=== PATIENT | male | born 1995 | race Caucasian/White ===

== ENCOUNTER 2025-07-07 16:27 | Emergency (ER) | payer SELFPAY ==
[2025-07-07 16:26] VITALS: PULSE 142; RESP 23
--- NOTE | 2025-07-07 16:35 | ECG_ITS ---
Test Date: 2025-07-07 16:35:46 Measurements Intervals [place] Rate: 140 P: 58 HI: 154 QRS: 50 QRSD: 110 T: 50 QT: 364 QTc: 557 Interpretive Statements SINUS TACHYCARDIA, POSSIBLE ATRIAL FLUTTER POSSIBLE RIGHT VENTRICULAR CONDUCTION DELAY [RSR (QR) IN V1/V2] ABNORMAL ECG No previous ECG available for comparison Electronically Signed On 07-08-2025 07:22:48 CDT by Pete Jones M.D.
--- NOTE | 2025-07-07 17:05 | ECG_ITS ---
Test Date: 2025-07-07 17:22:15 Measurements Intervals [place] Rate: 130 P: 0 VA: 0 QRS: 38 QRSD: 114 T: 45 QT: 400 QTc: 589 Interpretive Statements ATRIAL FLUTTER/TACHYCARDIA WITH RAPID VENTRICULAR RESPONSE INCOMPLETE RIGHT BUNDLE BRANCH BLOCK [90+ ms QRS DURATION, TERMINAL R IN V1/V2, 40+ ms S IN I/aVL/V4/V5/V6] ABNORMAL RHYTHM ECG No previous ECG available for comparison Electronically Signed On 07-08-2025 07:23:15 CDT by Pete Jones M.D.
--- NOTE | 2025-07-07 17:10 | ED.OVERDOSE ---
HPI - Overdose General Chief Complaint: Overdose Stated Complaint: overdose Time Seen by Provider: 07/07/25 17:03 Source: patient Mode of arrival: EMS Limitations: no limitations History of Present Illness HPI Narrative: This is a 30-year-old male that presents to the emergency department for an overdose. Reports he took 400mg of Benadryl and 200mg of Doxylamine. Reports he doubled the dose he usually takes to sleep as he was having trouble sleeping. Reports this was not an attempt to harm/kill himself. Reports anxiety, sweating, feeling off balance. This happened about 45 minutes prior to arrival. Related Data Allergies Allergy/AdvReac Type Severity Reaction Status Date / Time No Known Allergies Allergy Verified 07/07/25 17:20 Review of Systems Review of Systems: All systems reviewed & are unremarkable except as noted in HPI and below PMFSH Past Medical History Medical History (Updated 07/07/25 @ 23:03 by Hilda Ballard PA-C) Insomnia ADHD Social History Social History Substance use type: marijuana Exam Narrative: GENERAL: Diaphoretic, well-nourished, and in no acute distress. HEAD: Normocephalic, atraumatic. EYES: PERRLA and EOMI. ENT: Nares clear, no rhinorrhea or epistaxis. Mucous membranes moist. Oropharynx without tonsillar hypertrophy exudate or other lesions. Bilateral TMs pearly torre non-bulging NECK: Supple. No adenopathy or masses. CHEST: Clear to auscultation. No respiratory distress. No wheezes rales or rhonchi HEART: Tachycardic, regular rhythm. No murmur heard. Normal peripheral pulses. EXTREMITIES: Normal range of motion. No edema. SKIN: Warm, dry, no rash. NEURO: No focal deficits. Alert and oriented x3. PSYCH: Normal mood and affect Course Course Emergency Course: Poison control was contacted. Peak in about 3 hours, could be longer with combined overdose. Symptomatic management Consultations Consultation #1: Patient evaluated by crisis. Given resources, they will follow up with him Date: 07/07/25 Vital Signs Vital signs: Vital Signs Pulse Rate 142 H 07/07/25 16:26 Respiratory Rate 23 H 07/07/25 16:26 Pulse Rate 119 H 07/07/25 20:45 Respiratory Rate 19 07/07/25 20:45 Blood Pressure 160/98 H 07/07/25 20:45 Pulse Oximetry 100 07/07/25 20:45 MDM - Overdose MDM Narrative Medical decision making narrative: Patient presents to the ER after taking two different antihistamines in order to fall asleep. Patient reports history of insomnia and regularly has to take antihistamines to go to sleep. Reports he doubled his dose tonight. Does not report this was an attempt to harm himself or kill himself. Tachycardic upon arrival. This improved with IV fluid hydration. Patient's airway is patent. He is neurologically intact. CBC with mild leukocytosis. Metabolic panel with mild hypokalemia, this was replaced. Urine with white blood cells, also squamous epithelial cells. Patient does not have any urinary symptoms. Will send this for culture. Drug screen positive for cannabinoids. Alcohol level is not elevated. Patient was hydrated given a dose of Ativan with improvement. Monitored in the ER for 6 hours. Patient evaluated by crisis. Given resources, they will follow up with him. He was given warnings to return to the ER Differential Diagnosis Differential diagnosis: Likely suicide attempt by multiple drug overdose, drug overdose and accidental drug ingestion Lab Data Attestation: I reviewed the patient's lab results. 07/07/25 17:11 07/07/25 17:11 Labs: Lab Results 07/07/25 07/07/25 07/07/25 Range/Units 17:11 17:20 17:35 WBC 11.1 H (4.5-10.0) K/mm3 RBC 5.61 (4.6-6.20) M/mm3 Hgb 17.5 (14.0-18.0) g/dL Hct 49.9 (42.0-52.0) % MCV 88.9 (80-100) fl MCH 31.2 (26-34) pg MCHC 35.1 (32-36) g/dl RDW 13.2 (11.5-14.5) % Plt Count 416 H (150-375) k/mm3 MPV 9.8 (7.4-10.4) fl Immature Gran % (Auto) 0.4 (0-0.5) % Neut % (Auto) 69.4 (45.5-73.1) % Lymph % (Auto) 22.1 (18.3-44.2) % [place] % (Auto) 6.6 (2.6-8.5) % Eos % (Auto) 0.7 (0-4.4) % Baso % (Auto) 0.8 (0.2-1.2) % Lymph # (Auto) 2.46 (0.9-3.2) K/mm3 [place] # (Auto) 0.7 H (0.1-0.6) K/mm3 Eos # (Auto) 0.1 (0-0.3) K/mm3 Baso # (Auto) 0.1 (0.0-0.1) K/mm3 Abs Immat Gran (auto) 0.05 H (0.00-0.031) K/mm3 Absolute Neuts (auto) 7.7 H (1.3-6.7) K/mm3 Absolute Nucleated RBC 0.000 (0.0-0.012) K/mm3 Nucleated RBC % 0.0 (0.0-0.2) % Sodium 138 (137-145) mmol/L Potassium 3.2 L (3.4-5.0) mmol/L Chloride 99 (98-107) mmol/L Carbon Dioxide 14 L (22-30) mmol/L Anion Gap 25 H (4-12) mmol/L BUN 12 (9-20) mg/dL Creatinine 1.11 (0.7-1.3) mg/dL Estim Creat Clear Calc 134 ml/min Estimated GFR > 60 (59 - ) Glucose 132 H (65-110) mg/dL POC Capillary Glucose (65-105) mg/dl Calcium 9.9 (8.4-10.2) mg/dL Magnesium 2.1 (1.6-2.3) mg/dL Total Bilirubin 1.4 H (0.2-1.3) mg/dL AST 48 (17-59) U/L ALT 68 H (6-50) U/L Alkaline Phosphatase 112 (38-126) U/L Total Creatine Kinase 62 (55-170) U/L Total Protein 8.9 H (6.3-8.2) g/dL Albumin 5.3 H (3.5-5.1) g/dL TSH 0.812 (0.465-4.680) uIU/mL Urine Color Dark yellow (Yellow) Urine Appearance Turbid H (Clear) Urine pH 6.0 (5.0-9.0) Ur Specific [place] 1.037 H (1.001-1.035) Urine Protein 2+ H (Negative) mg/dL Urine Glucose (UA) Negative (Negative) mg/dL Urine Ketones 3+ H (Negative) mg/dL Ur Blood (Man) Negative (Negative) Urine Nitrate Negative (Negative) Urine Bilirubin 2+ H (Negative) Urine Urobilinogen 1.0 (<2.0) mg/dL Add Ur Microanalysis Reviewed Leukocyte Esterase Rfl 2+ H (Negative) ALICIA/UL Urine RBC 0-2 (0-2) /hpf Urine WBC 51-100 H (0-3) /hpf Ur Squamous Epith Cells Few (Few) /hpf Urine Bacteria Rare /hpf Urine Casts >20 Hyaline Casts Present (None) /lpf Urine Mucus Present /lpf Urine Yeast (Budding) Present H (None) /hpf Salicylates < 1.0 L (2-20) mg/dL Urine Opiates Screen Negative (Negative) Urine Methadone Screen Negative (Negative) Acetaminophen < 10 L (10-30) ug/mL Ur Barbiturates Screen Negative (Negative) Ur Phencyclidine Scrn Negative (Negative) Ur Amphetamine Screen Negative (Negative) U Benzodiazepines Scrn Negative (Negative) Urine Cocaine Screen Negative (Negative) U Cannabinoids Screen Positive A (Negative) Ethyl Alcohol < 10 (<10) mg/dL C. trachomatis (PCR) Not detected (NOT DETECTE) Influenza A (RT-PCR) Negative (Negative) Influenza B (RT-PCR) Negative (Negative) N. gonorrhoeae (PCR) Not detected (NOT DETECTE) SARS-CoV-2 RNA (RT-PCR) Negative (Negative) T. vaginalis (PCR) Not detected (NOT DETECTE) 07/07/25 Range/Units 18:17 WBC (4.5-10.0) K/mm3 RBC (4.6-6.20) M/mm3 Hgb (14.0-18.0) g/dL Hct (42.0-52.0) % MCV (80-100) fl MCH (26-34) pg MCHC (32-36) g/dl RDW (11.5-14.5) % Plt Count (150-375) k/mm3 MPV (7.4-10.4) fl Immature Gran % (Auto) (0-0.5) % Neut % (Auto) (45.5-73.1) % Lymph % (Auto) (18.3-44.2) % [place] % (Auto) (2.6-8.5) % Eos % (Auto) (0-4.4) % Baso % (Auto) (0.2-1.2) % Lymph # (Auto) (0.9-3.2) K/mm3 [place] # (Auto) (0.1-0.6) K/mm3 Eos # (Auto) (0-0.3) K/mm3 Baso # (Auto) (0.0-0.1) K/mm3 Abs Immat Gran (auto) (0.00-0.031) K/mm3 Absolute Neuts (auto) (1.3-6.7) K/mm3 Absolute Nucleated RBC (0.0-0.012) K/mm3 Nucleated RBC % (0.0-0.2) % Sodium (137-145) mmol/L Potassium (3.4-5.0) mmol/L Chloride (98-107) mmol/L Carbon Dioxide (22-30) mmol/L Anion Gap (4-12) mmol/L BUN (9-20) mg/dL Creatinine (0.7-1.3) mg/dL Estim Creat Clear Calc ml/min Estimated GFR (59 - ) Glucose (65-110) mg/dL POC Capillary Glucose 71 (65-105) mg/dl Calcium (8.4-10.2) mg/dL Magnesium (1.6-2.3) mg/dL Total Bilirubin (0.2-1.3) mg/dL AST (17-59) U/L ALT (6-50) U/L Alkaline Phosphatase (38-126) U/L Total Creatine Kinase (55-170) U/L Total Protein (6.3-8.2) g/dL Albumin (3.5-5.1) g/dL TSH (0.465-4.680) uIU/mL Urine Color (Yellow) Urine Appearance (Clear) Urine pH (5.0-9.0) Ur Specific [place] (1.001-1.035) Urine Protein (Negative) mg/dL Urine Glucose (UA) (Negative) mg/dL Urine Ketones (Negative) mg/dL Ur Blood (Man) (Negative) Urine Nitrate (Negative) Urine Bilirubin (Negative) Urine Urobilinogen (<2.0) mg/dL Add Ur Microanalysis Leukocyte Esterase Rfl (Negative) ALICIA/UL Urine RBC (0-2) /hpf Urine WBC (0-3) /hpf Ur Squamous Epith Cells (Few) /hpf Urine Bacteria /hpf Urine Casts Hyaline Casts (None) /lpf Urine Mucus /lpf Urine Yeast (Budding) (None) /hpf Salicylates (2-20) mg/dL Urine Opiates Screen (Negative) Urine Methadone Screen (Negative) Acetaminophen (10-30) ug/mL Ur Barbiturates Screen (Negative) Ur Phencyclidine Scrn (Negative) Ur Amphetamine Screen (Negative) U Benzodiazepines Scrn (Negative) Urine Cocaine Screen (Negative) U Cannabinoids Screen (Negative) Ethyl Alcohol (<10) mg/dL C. trachomatis (PCR) (NOT DETECTE) Influenza A (RT-PCR) (Negative) Influenza B (RT-PCR) (Negative) N. gonorrhoeae (PCR) (NOT DETECTE) SARS-CoV-2 RNA (RT-PCR) (Negative) T. vaginalis (PCR) (NOT DETECTE) Critical Care Time Critical Care Time Critical Care Time: No Discharge Plan Discharge Clinical Impression: Abnormal urinalysis Anticholinergic drug overdose Qualifiers: Encounter type: initial encounter Injury intent: accidental or unintentional Qualified Code(s): T44.3X1A - Poisoning by other parasympatholytics [anticholinergics and antimuscarinics] and spasmolytics, accidental (unintentional), initial encounter Patient Disposition: Home Condition: Improved Instructions: Adult Overdose (ED) Additional Instructions: Return to the emergency department if you experience fever, chest pain, shortness of breath, abdominal pain with nausea and vomiting, weakness, numbness, or any other symptoms that are concerning to you. Follow up with primary care doctor and resources provided by crisis Patient Language: Australian Follow-up/Referrals: Duglas Carrera MD [Physician, Family Practice] UNKNOWN,DOCTOR [Primary Care Provider]
[2025-07-07 17:22] LABS: Hematocrit 49.9 % (42.0-52.0); Hemoglobin 17.5 g/dL (14.0-18.0); Immature Granulocyte Percent A 0.4 % (0-0.5); Lymphocytes Absolute Auto 2.46 K/mm3 (0.9-3.2); Mean Corpuscular HGB Conc 35.1 g/dl (32-36); Mean Corpuscular Hemoglobin 31.2 pg (26-34); Mean Corpuscular Volume 88.9 fl (80-100); Nucleated Red Blood Cells Absolute Auto 0.000 K/mm3 (0.0-0.012); Nucleated Red Blood Cells Perc 0.0 % (0.0-0.2); Platelet Count Result 416 k/mm3 (150-375); Red Blood Count 5.61 M/mm3 (4.6-6.20); White Blood Count 11.1 K/mm3 (4.5-10.0)
[2025-07-07] MEDS: SODIUM CHLORIDE 0.9% IV 1,000 ML 999 ML IV CONT (17:24)
--- NOTE | 2025-07-07 17:24 | PC.NURSE ---
Spoke with Tiff, pharmacist at poison control. States peka for doxylamine is 1-2 hours and diphenhydramine is 2-3 hours. These can be delayed in overdose. Recommended labs are ethanol, tylenol, UDS and salicylates. Recommends symptomatic care at this time. Pt can develop drowsiness, N/V and agitation as sx.
[2025-07-07 17:37] LABS: Acetaminophen < 10 ug/mL (10-30); Salicylate < 1.0 mg/dL (2-20)
[2025-07-07 17:38] LABS: Alanine Aminotransferase 68 U/L (6-50); Albumin Level 5.3 g/dL (3.5-5.1); Alkaline Phosphatase 112 U/L (38-126); Anion Gap 25 mmol/L (4-12); Aspartate Amino Transferase 48 U/L (17-59); Bilirubin,Total 1.4 mg/dL (0.2-1.3); Blood Urea Nitrogen 12 mg/dL (9-20); Calcium 9.9 mg/dL (8.4-10.2); Carbon Dioxide 14 mmol/L (22-30); Chloride 99 mmol/L (98-107); Creatine Kinase 62 U/L (55-170); Estimated CRCL calculation 134 ml/min; Estimated Glomerular Filt Rate > 60; Glucose 132 mg/dL (65-110); Potassium 3.2 mmol/L (3.4-5.0); Sodium 138 mmol/L (137-145); Total Protein 8.9 g/dL (6.3-8.2)
[2025-07-07 17:55] LABS: Add Urine Microscopic? YES; Appearance Urine Turbid (Clear); Budding Yeast Urine Present /hpf; Glucose Urine UA Negative (Negative); Leukocyte Esterase Ur 2+ LEU/UL (Negative); Need Manual Microscopic Reviewed; Nitrate Urine Negative (Negative); Non Pathogenic Casts >20; Specific Grav Ur 1.037 (1.001-1.035)
--- OUTSIDE RECORDS SUMMARY | 2025-07-07 17:56 | XMS_ITS | Patient Health Record ---
Author Organization [facility] Address [address] [place], [place] [id number] Support Name Relationship Address Phone JESSICA TALAVERA Guarantor Unknown [phone] Reason For Referral No Information Plan Of Treatment No Information
--- OUTSIDE RECORDS SUMMARY | 2025-07-07 17:56 | XMS_ITS | Clinical Summary ---
Author Organization [facility] Address [address] [place] [address] Care Team Providers Care Orthopaedic Physician Assistant Name Role Phone Unavailable Primary Care Provider Unavailabl e Source Comments PLEASE NOTE, if this patient is a minor, it may be UNLAWFUL to discuss sensitive information that is contained in these records (such as FAMILY PLANNING, MENTAL HEALTH or SUBSTANCE ABUSE) with the minor patient's parent or other person without the patient's specific authorization.[facility] Allergies No known active allergies Medications lisinopriL-hydr ochlorothiazide 20-25 mg per tablet Take 1 Tablet by mouth once daily 30 Tablet 3 03/02/2022 2:48 PM PDT 11/22/2021 Active buPROPion HCL (WELLBUTRIN XL) 150 mg 24 hr tablet Take 1 Tablet by mouth every morning 30 Tablet 3 03/02/2022 2:48 PM PDT 11/22/2021 Active emtricitabine-t enofovir, TDF, (TRUVADA) 200-300 mg per tablet TAKE ONE TABLET BY MOUTH ONCE DAILY 30 Tablet 3 03/07/2022 1:11 PM PDT 03/02/2022 Active dextroamphetami ne-amphetamine (ADDERALL XR) 30 mg 24 hr capsule TAKE ONE CAPSULE BY MOUTH EVERY MORNING 30 Capsule 03/07/2022 1:11 PM PDT 03/02/2022 Active Active Problems Problem Noted Date Diagnosed Date Essential hypertension 05/12/2019 ADD (attention deficit disorder) without hyperac tivity 01/28/2019 Exposure to human immunodeficiency virus 019 Chronic prostatitis 01/28/2019 Other obesity due to excess calories 01/28/2019 Depression 01/28/2019 Nephrolithiasis 01/28/2019 Immunizations Immunization Administration Dates Next Due HEP B,ADULT 04/11/2018,03/05/2018 Family History Medical History Relation Name Comments ADD / ADHD Father Depression Father Depression Mother Heart Problems Mother Relation Name Status Comments Father Alive Mother Alive Social History Tobacco Use Types Packs/Day Years Used Date Smoking Tobacco: Never Smokeless Tobacco: Never Tobacco Cessation:Counseling Given: Yes Social Connections Answer Date Recorded Connectedness 0 07/04/2024 Financial Resource Strain Answer Date R ecorded Financial Resource Strain 0 2018 Stress Answer Date Recorded Stress 0 06/09/2019 Physical Activity Answer Date Recorded Physical Activity 0 06/09/2019 Food Insecurity Answer Date Recorded Food 0 07/10/2024 Transportation Needs Answer Date Record ed Transportation 0 06/09/2019 Housing Stability Answer Date Recorded Housing 0 06/09/2019 Safety and Environment Answer Date Azeem rded Safety 0 06/09/2019 Utilities Answer Date Recorded Utilities 0 06/09/2019 Employment Answer Date Recorded Stress 0 07/04/2024 Sex and Gender Information Value Date Recorded Sex Assigned at Not on file Legal Sex Male 10:54 AM PST Gender Identity Not on file Sexual Orientation Not on file Last Filed Vital Signs Vital Sign Reading Time Taken Comments Blood Pressure 155/97 11/22/2021 12:40 PM [facility] Pulse 92 11/22/2021 12:40 PM [facility] Temperature 36.8 C (98.2 F) 11/22/2021 12:40 PM [facility] Respiratory Rate 18 06/16/2020 3:17 PM CDT Oxygen Saturation 96% 11/22/2021 12: 40 PM [facility] Inhaled Oxygen Concentration - - Weight 138.4 kg (305 lb 3.2 oz) 022 12:40 PM [facility] Height 190.5 cm (6' 3) 09/21/2021 9:28 AM [facility] Body Mass Index 38.15 09/21/2021 9:28 AM [facility] Plan of Treatment Health Maintenance Due Date Last Done Comments Anxiety Screening 1995 Tobacco Screening 1995 Imm-DTaP/Tdap/Td (1 - Tdap) 2014 Imm-Hepatitis B (3 of 3 - 19 + 3-dose series) 09/05/2018 04/11/2018, 03/05/2018 Depression Monitoring 08/12/2019 05/12/2019 Imm-HPV (1 - 3-dose SCDM series) 2022 Annual Wellness (Adult): Indicated (All Coverage) 02/15/2022 02/15/2021, 11/14/2019 Lipid Screening 02/16/2024 02/15/2021, 10/17, 10/25/2018, Additional history exists Alcohol and Drug Screen 10/15/2024 [id number] ( season) 2025 Imm-Influenza (#1) 2025 HIV Screening Completed 03/09/2022, 05/2022, 07/19/2021, Additional history exists Hepatitis C Screening Completed 03/09/2022 , 11/22/2021, 02/15/2021, Additional history exists Procedures Procedure Name Priority Date/Time Associated Diagnosis Comments HIV 1/2 AG & AB W/RFLX (4TH GEN) Routine 11/22/2021 1:11 PM [facility] Exposure to human immunodeficiency virus HEPATITIS C AB W/RFLX HCV RNA, QT, RT PCR Routine 11/22/2021 1:11 PM [facility] Exposure to human immunodeficiency virus LIPID PANEL Routine 02/15/2021 4:13 PM CDT Routine adult health maintenance from Last 3 Months or Most Recently Relevant to Health Maintenance Results * HEPATITIS C AB W/RFLX HCV RNA, QT, RT PCR (11/22/2021 1:11 PM [facility]) HEPATITIS C ANTIBODY NON-REACT CATHY NON-REACT CATHY [facility] SIGNAL TO CUT-OFF 0.01 <1.00 [facility] Comment: HCV antibody was non-reactive. There is no laboratory evidence of HCV infection. In most cases, no further action is required. However, if recent HCV exposure is suspected, a test for HCV RNA (test code 55525) is suggested. For additional information please refer to http://education.WAKU WAKU ?/faq/PXW93c1 (This link is being provided for informational/ educational purposes only.) Blood Blood / Unknown 11/22/2021 1 :11 PM [facility] 11/22/2021 1:11 PM [facility] Narrative [facility] - 11/23/2021 10:44 PM [facility] FASTING:NO Rex Mac MD LAB - BLOOD DRAW Edited Re sult - Final [facility] [address] [id number], [facility] [place] [address] [place] [address] * HIV 1/2 AG & AB W/RFLX (4TH GEN) (11/22/2021 1:11 PM [facility]) Pathologist [facility] HIV AG/AB, 4TH GEN NON-REACT CATHY NON-REACT CATHY [facility] Comment: HIV-1 antigen and HIV-1/HIV-2 antibodies were not detected. There is no laboratory evidence of HIV infection. PLEASE NOTE: This information has been disclosed to you from records whose confidentiality may be protected by state law. If your state requires such protection, then the state law prohibits you from making any further disclosure of the information without the specific written consent of the person to whom it pertains, or as otherwise permitted by law. A general authorization for the release of medical or other information is NOT sufficient for this purpose. For additional information please refer to http://education.Eduora.InflaRx/faq/YZB639 (This link is being provided for informational/ educational purposes only.) The performance of this assay has not been clinically validated in patients less than 2 years old. Blood Blood / Unknown 11/22/2021 1 :11 PM [facility] 11/22/2021 1:11 PM [facility] Narrative [facility] - 11/23/2021 10:44 PM [facility] FASTING:NO Rex Mac MD LAB - BLOOD DRAW Final Res ult [facility] [address] [address], [facility] [place] [address] [place] [address] * LIPID PANEL (02/15/2021 4:13 PM CDT) CHOLESTEROL, TOTAL 171 <200 mg/dL [facility] HDL CHOLESTEROL 64 > OR = 40 mg/dL [facility] TRIGLYCERIDES 62 <150 mg/dL [facility] LDL-CHOLESTEROL 93 99 mg/dL (calc) [facility] Comment: Reference range: <100 Desirable range <100 mg/dL for primary prevention; <70 mg/dL for patients with CHD or diabetic patients with > or = 2 CHD risk factors. LDL-C is now calculated using the Azra calculation, which is a validated novel method providing better accuracy than the Friedewald equation in the estimation of LDL-C. Jose Juan SS et al. ADAM. 2013;310(19): 1449-8997 (http://education.Repair Report/faq/NSL492) CHOL/HDLC RATIO 2.7 <5.0 (calc) [facility] NON-HDL CHOLESTEROL 107 <130 mg/dL (calc) [facility] Comment: For patients with diabetes plus 1 major ASCVD risk factor, treating to a non-HDL-C goal of <100 mg/dL (LDL-C of <70 mg/dL) is considered a therapeutic option. Blood Blood / Unknown 02/15/2021 4 :13 PM CDT 02/15/2021 4:15 PM CDT Rex Mac MD LAB - BLOOD DRAW Final Res ult [facility] [place] [address] [facility] [place] [address], [facility] [address] [facility] [place] [address] from Last 3 Months or Most Recently Relevant to Health Maintenance Insurance [facility]
--- OUTSIDE RECORDS SUMMARY | 2025-07-07 17:56 | XMS_ITS | Clinical Summary ---
Author Organization [facility] Address [address] [place] [address] Care Team Providers Care Braddisher Name Role Phone Louisa Schumacher NP Primary Care Provider [phone] Allergies No known active allergies Medications multivit aomdoaki-qtwz-YU-c alcium (THERA-M) 9 mg iron-400 mcg tabletIndications: Vitamin Deficiency Prevention Take 1 tablet by mouth daily 30 tablet 2 Active lisinopriL (PRINIVIL,ZESTRIL) 20 mg tabletIndications: Hypertension, essential,Annual physical exam Take 1 tablet (20 mg total) by mouth daily 90 tablet 1 4 Active cholecalciferol, vitamin D3, 5,000 unit/mL drops Take 1 mL by mouth daily Active buPROPion XL (Wellbutrin XL) 300 mg 24 hr tabletIndications: Attention deficit hyperactivity disorder (ADHD), unspecified ADHD type,Moderate episode of recurrent major depressive disorder (HCC) Take 1 tablet (300 mg total) by mouth every morning 30 tablet 1 5 Active dextroamphetamine- amphetamine XR (Adderall XR) 10 mg 24 hr capsuleIndications :Attention deficit hyperactivity disorder (ADHD), unspecified ADHD type Take 1 capsule (10 mg total) by mouth every morning 30 capsule 5 Active dextroamphetamine- amphetamine XR (ADDERALL XR) 25 mg 24 hr capsuleIndications :Attention deficit hyperactivity disorder (ADHD), unspecified ADHD type Take 1 capsule (25 mg total) by mouth daily 30 capsule 5 Active Active Problems Problem Noted Date Diagnosed Date Flank pain 08/27/2024 Assessment & Plan (08/27/2024 6:16 AM LSAT INSTRUCTOR): Chronic, episodic Unremarkable POCT urine test, sent for culture for confirmation Discussed additional imaging with CT of abdomen pelvis, not interested at this time Tylenol and warm compresses recommended Strict return precautions given, including when to seek ER evaluation Elevated ALT measurement 07/28/2024 Assessment & Plan (07/28/2024 4:22 PM CDT): New diagnosis, stability unknown Will monitor for stability Vitamin D deficiency 07/28/2024 Assessment & Plan (07/28/2024 4:25 PM CDT): Chronicity and stability unknown, normal at last check Continued on vitamin D3 supplement Will monitor for stability APRIL (generalized anxiety disorder) 07/28/2024 Assessment & Plan (08/27/2024 6:15 AM LSAT INSTRUCTOR): Chronic, stability and degree of control unknown, on medication with recent adjustment/addition, seeing psychiatry Encouraged to follow up with psychiatry as recommended Assessment & Plan (07/28/2024 4:38 PM CDT): Chronic, uncontrolled, stability unknown, on medication and seeing psychiatry Reviewed APRIL-7 score Encouraged to follow up with psychiatry as recommended Screening examination for sexually transmitted d isease 02/21/2023 Assessment & Plan (02/21/2023 7:10 AM CDT): Ordered STD panel. Morbid obesity with BMI of 45.0-49.9, adult 02/12 Assessment & Plan (08/27/2024 6:13 AM LSAT INSTRUCTOR): Chronic, worsened Encouraged to: Make healthy food choices, limiting intake of concentrated sweets, cholesterol, and saturated fat Monitor daily caloric intake and portion sizes Exercise most days of the week for a goal of at least 150 minutes of exercise per week Assessment & Plan (07/28/2024 4:14 PM CDT): Chronic, worsened Encouraged to: Make healthy food choices, limiting intake of concentrated sweets, cholesterol, and saturated fat Monitor daily caloric intake and portion sizes Exercise most days of the week for a goal of at least 150 minutes of exercise per week Assessment & Plan (01/22/2024 2:35 PM CDT): Chronic, improved Encouraged to: Make healthy food choices, limiting intake of concentrated sweets, cholesterol, and saturated fat Monitor daily caloric intake and portion sizes Exercise most days of the week for a goal of at least 150 minutes of exercise per week Assessment & Plan (07/25/2023 4:58 AM CDT): Chronic, worsening, without serious co-morbidity Encouraged to monitor daily caloric intake and portion sizes and to exercise most days of the week, for a goal of at least 150 minutes of exercise per week Assessment & Plan (02/21/2023 7:12 AM CDT): Chronic, worsening, without serious comorbidity-encouraged to monitor daily caloric intake and portion sizes and to exercise most days of the week, for goal of at least 150 minutes per week. History of colon polyps 06/26/2022 Assessment & Plan (07/25/2023 4:58 AM CDT): Encouraged follow-up with [facility] as recommended Assessment & Plan (06/26/2022 7:37 PM CDT): Encouraged to keep appointment this month for screening colonoscopy. Annual physical exam 03/31/2022 Assessment & Plan (07/28/2024 4:24 PM CDT): Reviewed past and current medical history, surgical history, social history, family history, current medications, and allergies. The chart was updated to identify any changes in these areas. A ROS and PE were performed. Discussed screening colonoscopy and recommended immunizations. Patient will follow-up in 6 months for further evaluation and management or sooner if needed. Assessment & Plan (07/25/2023 5:00 AM CDT): Reviewed past and current medical history, surgical history, social history, family history, current medications, and allergies. The chart was updated to identify any changes in these areas. A ROS and PE were performed. Medications and labs were ordered and referrals were made. Discussed screening colonoscopy and recommended immunizations. Patient will follow-up in 6 months for further evaluation and management or sooner if needed. Assessment & Plan (03/31/2022 11:10 AM CDT): Reviewed past and current medical history, surgical history, social history, family history, current medications, and allergies. A ROS and PE were performed. Labs were ordered and a referral was made. Discussed recommended immunizations. Patient will follow-up in 8-12 weeks for further evaluation and management or sooner if needed. Encounter for vitamin deficiency screening 03/31 Assessment & Plan (03/31/2022 11:10 AM CDT): Ordered vitamin-D 25 OH. Anemia 03/24/2022 Assessment & Plan (07/28/2024 4:11 PM CDT): Chronic, on multivitamin with iron Reviewed last CBC dated 01/22/24 Continued on multivitamin with iron Will monitor for stability Assessment & Plan (01/22/2024 2:33 PM CDT): Chronic, on multivitamin with iron Reviewed last CBC dated 04/05/2022 Continued on multivitamin with iron Will monitor for stability Assessment & Plan (07/25/2023 4:58 AM CDT): Chronic, on multivitamin with iron Reviewed last CBC dated 04/05/2022, with minimal decrease in hemoglobin/hematocrit Continued on multivitamin with iron Will recheck with next set of lab work, declined at this time Assessment & Plan (03/31/2022 11:04 AM CDT): Chronicity and stability unknown-CBC previously ordered pending completion. Assessment & Plan (03/24/2022 7:18 AM CDT): New finding, mild anemia on last check, Hgb/Hct 11.3/32.4 respectively-ordered repeat CBC in 8 weeks. Need for vaccination 03/24/2022 Assessment & Plan (06/26/2022 7:34 PM CDT): Recommended COVID-19 booster and seasonal influenza vaccine. Assessment & Plan (03/24/2022 7:19 AM CDT): Tdap given. Hypertension, essential 03/24/2022 Assessment & Plan (08/27/2024 6:13 AM LSAT INSTRUCTOR): Chronic, improved on medication Continued on lisinopril Assessment & Plan (07/28/2024 4:13 PM CDT): Chronic, worsened, likely due to weight gain Encouraged to limit sodium intake, no more than 2000 mg/day Encouraged exercise and weight loss Will continue to monitor for stability Assessment & Plan (01/22/2024 2:34 PM CDT): Chronicity unknown, currently uncontrolled without medication, with normal systolic, borderline diastolic (92, 90) Will continue to monitor for stability Encouraged to monitor daily caloric intake and portion sizes and exercise most days of the week to facilitate weight loss Assessment & Plan (07/25/2023 4:59 AM CDT): Chronicity unknown, currently controlled without medication, previously prescribed lisinopril Will continue to monitor for stability Assessment & Plan (02/21/2023 7:10 AM CDT): Chronic, uncontrolled, on medication-continued on lisinopril and hydrochlorothiazide. Advised to monitor blood pressure at home, and if averaging greater than or equal to 140/90, to notify office with adjustment in medication can be made prior to annual in fall. Assessment & Plan (06/26/2022 7:34 PM CDT): Chronic, stable, controlled on medication-continued on lisinopril and hydrochlorothiazide. Assessment & Plan (03/31/2022 11:08 AM CDT): Chronic, stable, controlled with medication-continued on lisinopril and hydrochlorothiazide. Assessment & Plan (03/24/2022 7:22 AM CDT): Chronic, stable, controlled on medication-continued on lisinopril and HCTZ. Recent CMP reviewed with normal creatinine and GFR. Recurrent major depressive disorder, in remissio n 03/23/2022 Assessment & Plan (08/27/2024 6:15 AM LSAT INSTRUCTOR): Chronic, stability and degree of control unknown, on medication with recent adjustment/addition, seeing psychiatry Continued on Wellbutrin XL 300 mg daily, Adderall XR 20 mg daily Advised if suicidal ideation or thoughts of harming self or others, to go to ER and/or call [phone] for assistance, agreed to contract for safety Assessment & Plan (07/28/2024 4:38 PM CDT): Chronic, uncontrolled, stability unknown, on medication and seeing psychiatry Reviewed PHQ-9=19 Continued on Wellbutrin XL 150 mg devin Advised if suicidal ideation or thoughts of harming self or others, to go to ER and/or call [phone] for assistance, agreed to contract for safety Assessment & Plan (01/22/2024 2:37 PM CDT): Chronic, uncontrolled, on medication Continued on Caplyta, Adderall XR, divalproex ER, and duloxetine per psychologist Advised if suicidal ideation or thoughts of harming self or others, to go to ER and/or call [phone] for assistance, agreed to contract for safety Assessment & Plan (07/25/2023 5:01 AM CDT): Chronic, stable, states controlled without medication, discontinued all medications and is no longer following with psychiatry or psychology Review PHQ-9=6, APRIL-7=2 Advised if suicidal ideation or thoughts of harming self or others, to go to ER and/or [phone] for assistance, agreed to contract for safety Assessment & Plan (02/21/2023 7:11 AM CDT): Chronic, stable, controlled on medication, PHQ-9=10, APRIL-7=4-continued on bupropion XL 300 mg daily per psychiatrist. Encouraged to follow-up with psychiatrist as recommended. If suicidal ideation or thoughts of harming self or others, instructed to go to ER and/or call [phone]. Assessment & Plan (06/26/2022 7:34 PM CDT): Chronic, improved on medication and with counseling sessions and AA meetings- advised to continue follow-up with psychiatrist as recommended/medications as directed (Strattera and Wellbutrin XL) and to continue with individual and group counseling and AA sessions. Assessment & Plan (03/31/2022 11:03 AM CDT): Chronic, with recent exacerbation of symptoms, with some improvement on new medication, currently seen a counselor and has 1st a meeting scheduled for today, awaiting call back from psychiatrist-encouraged to continue counseling and to pursue appointment with psychiatrist as planned. Advised keeping appointment today for initial AA meeting. Assessment & Plan (03/24/2022 7:21 AM CDT): Chronic, improved, but uncontrolled-advised to continue follow-up with psychiatrist & medications as prescribed, provided with list of local providers, however encouraged to call insurance for providers covered under his plan. Advised to keep appointment next Sunday with therapist. Instructed to go to ER if suicidal ideation or thoughts of harming self or others. Resolved Problems Problem Noted Date Diagnosed Date Resolved Date Severe obesity 07/28/2024 07/28/2024 Assessment & Plan (07/28/2024 4:14 PM CDT): Chronic, worsened Encouraged to: Make healthy food choices, limiting intake of concentrated sweets, cholesterol, and saturated fat Monitor daily caloric intake and portion sizes Exercise most days of the week for a goal of at least 150 minutes of exercise per week Body mass index (BMI) 45.0-49.9, adult 07/28/2024 07/28/2024 Immunity status testing 02/21/202307/15 Assessment & Plan (02/21/2023 7:10 AM CDT): He had a negative varicella titer on 04/05/2022, received a varicella vaccine on 04/11/2022, with history of prior vaccination on 01/28/1999. Ordered varicella titer. History of penile discharge 06/26/2022 07/23/2023 Assessment & Plan (06/26/2022 7:36 PM CDT): History of recurrent penile discharge, has concerns regarding c hronic prostatitis-declined urinalysis and STI testing with history of high risk sexual behavior, however states currently no concerns regarding STIs. Referred to urology for further evaluation of concerns and management of symptoms, although currently asymptomatic. Atypical chest pain 03/31/2022 07/23/20 Assessment & Plan (06/26/2022 7:37 PM CDT): Chronic, episodic, stable, currently asymptomatic-advised scheduling a consultation with manager servicing as previously discussed for further evaluation and management of episodic chest pain. Assessment & Plan (03/31/2022 11:10 AM CDT): Chronic, stable-referred to Cardiology for further evaluation and management. Need for chickenpox vaccination 03/31/2022 07/28/2024 Assessment & Plan (07/25/2023 5:00 AM CDT): Encouraged to reconsider 2nd dose of varicella vaccine due to non-immune status, at a minimum, to reconsider checking varicella IgG antibody level, not interested at this time Assessment & Plan (03/31/2022 11:10 AM CDT): Varicella titer ordered. Encounter to establish care 03/24/2022 03/31/2022 Assessment & Plan (03/24/2022 7:19 AM CDT): Reviewed past and current medical history, surgical history, social history, family history, current medications, and allergies. A ROS and PE were performed. Labs were ordered and a Tdap was given Discussed recommended immunizations. Patient will follow-up in 1 week for annual exam, sooner if needed. Abnormal urinalysis 03/24/2022 07/23/20 23 Assessment & Plan (03/31/2022 11:04 AM CDT): Chronicity and stability unknown-urinalysis previously ordered pending completion. Assessment & Plan (03/24/2022 7:17 AM CDT): New finding with elevated urobilinogen of 4-ordered follow-up urinalysis with reflex to culture and sensitivity if indicated. Altered mental status 03/08/20222021 Acute kidney injury 03/08/2022 03/24/20 22 Leukocytosis 03/08/2022 03/24/2022 Immunizations Immunization Administration Dates Next Due DTaP 03/16/2000, 6,1995,1995,0 1995 Hep B Vaccine 04/11/2018,03/05/2018 Hep B, Adolescent or Pediatric 1995,1994,1995 Hib (PRP-D) 1995,1995,1995 IPV 03/16/2000,1995,1995 ,1995 Influenza, Unspecified 07/28/2024(Deferr ed: Patient Refused),07/15/2022(Deferred: Patient Refused),07/15/2022(Deferred: Patient Refused) MMR 03/16/2000,07/02/1996 Tdap 03/23/2022 Varicella 04/11/2022,01/28/1999 Medical History Medical History Date Comments ADD (attention deficit disorder) Hypertension Depression Noncompliance Colon polyps 3 colonscopy; mo st recent 2000 Altered mental status 03/08/2022 Acute kidney injury 03/08/2022 Family History Medical History Relation Name Comments ADD / ADHD Father Depression Father pre diabetic Father Depression Maternal Grandmother Depression Mother Heart attack Mother Heart disease Paternal Grandfather Hypertension Paternal Grandfather Prostate cancer Paternal Grandfather Alzheimer's disease Paternal Grandmother Relation Name Status Comments Father Maternal Grandmother Mother Paternal Grandfather Paternal Grandmother Social History Tobacco Use Types Packs/Day Years Used Date Smoking Tobacco: Light Smoker Cigarillos Tobacco Cessation:Ready to Q uit: Not Asked; Counseling Given: Not Answered Comments:occasional cigars AUDIT-C Answer Date Recorded Q1: How often do you have a drink containing alc ohol? Never 03/23/2022 Average Number of Drinks Not on file 022 Frequency of Binge Drinking Not on file 06/2022 PHQ-2 Answer Date Recorded PHQ-2 Total Score (If total score is 3 or more points, staff should administer the PHQ-9) 5 07/28/2024 PHQ-9 Answer Date Recorded PHQ-9 Total Score 19 07/28/2024 Sex and Gender Information Value Date Recorded Sex Assigned at Not on file Legal Sex Male 2:42 AM LSAT INSTRUCTOR Gender Identity Male 08/23/2022 3:09 PM LSAT INSTRUCTOR Sexual Orientation James 08/23/2022 3: 09 PM LSAT INSTRUCTOR Obstetrics History Last Filed Vital Signs Vital Sign Reading Time Taken Comments Blood Pressure 128/72 08/26/2024 4:42 PM LSAT INSTRUCTOR Pulse 105 08/26/2024 3:47 PM LSAT INSTRUCTOR Temperature 36.8 C (98.3 F) 08/26/2024 3:47 PM LSAT INSTRUCTOR Respiratory Rate 14 08/26/2024 3:47 PM LSAT INSTRUCTOR Oxygen Saturation 96% 08/26/2024 3:47 PM LSAT INSTRUCTOR Inhaled Oxygen Concentration - - Weight 164.9 kg (363 lb 8 oz) 08/26/2024 3:47 PM LSAT INSTRUCTOR Height 186.7 cm (6' 1.5) 08/26/2024 3:47 PM LSAT INSTRUCTOR Body Mass Index 47.3 08/26/2024 3:47 PM LSAT INSTRUCTOR Plan of Treatment Health Maintenance Due Date Last Done Comments Pneumococcal vaccine <65 (1 of 2 - PCV) 2014 HPV Vaccines (1 - 3-dose SCD M series) 2022 Covid-19 Vaccine (3 - 2024-2 6 season) 2025 04/03/2022, 02/27/2021 Influenza Vaccine (#1) 2025 Depression Screening 07/28/2025 07/28/2024, 07/28/2024, 07/23/2023, Additional history exists Regular Well Visit/Exam 18-64 07/28/2025, 07/23/2023, 03/31/2022 DTaP/Tdap/Td Vaccine (7 - Td or Tdap) 03/23/2032 03/23/2022, 03/16/2000, 07/02/1996, Additional history exists Hepatitis B Screening Completed 04/11/2018 , 03/05/2018, 1995, Additional history exists Varicella Vaccines Completed 04/11/2022, 01/28/1999 Hepatitis C Screening Completed 08/11/2024 , 01/22/2024, 05/02/2023, Additional history exists Procedures Procedure Name Priority Date/Time Associated Diagnosis Comments HEPATITIS PANEL, ACUTE Routine 08/11/2024 3:33 PM CDT Screening examination for sexually transmitted disease Annual physical exam from Last 3 Months or Most Recently Relevant to Health Maintenance Results * Hepatitis panel, acute Blood (08/11/2024 3:33 PM CDT) Hep A IgM NON-REACTI VE NON-REACT CATHY [facility] Comment: For additional information, please refer to http://[employer]/faq/GEH844 (This link is being provided for informational/ educational purposes only.) HepBsAg NON-REACTI VE NON-REACT CATHY [facility] Comment: For additional information, please refer to http://[employer]/faq/KBC003 (This link is being provided for informational/ educational purposes only.) Hep B core IgM NON-REACTI VE NON-REACT CATHY [facility] Comment: For additional information, please refer to http://[employer]/faq/WJC849 (This link is being provided for informational/ educational purposes only.) Hep C Ab NON-REACTI VE NON-REACT CATHY [facility] Comment: HCV antibody was non-reactive. There is no laboratory evidence of HCV infection. In most cases, no further action is required. However, if recent HCV exposure is suspected, a test for HCV RNA (test code 43895) is suggested. For additional information please refer to http://[employer]/faq/VXU02t0 (This link is being provided for informational/ educational purposes only.) Blood 08/11/2024 3:33 PM CDT 08/11/2024 3:39 PM CDT Louisa Schumacher NP LAB MICROBIOLOGY - GENERAL ORDER JAYSHREE Final Result [email or web address] [id number] [facility] [place] [address] from Last 3 Months or Most Recently Relevant to Health Maintenance Insurance [employer] [facility] [place]PO [place] [facility] Address: [facility] [address] [place] [address] Advance Directives For more information, please contact: [phone] * Full Code (Latest Code Status on File) Date Activated Date Inactivated Comments 03/08/2022 5:27 PM 03/13/2022 8:26 PM Care Teams Braddisher Relationship Specialty Start Date End Date Louisa Schumacher NP [address] [place] [id number] PCP - General Family Practice 03/23/22
--- OUTSIDE RECORDS SUMMARY | 2025-07-07 17:56 | XMS_ITS | Patient Health Record ---
Author Organization [facility] [email or web address] Address [address] [place] [address] Care Team Providers Care Sign Poster Name Role Phone Rogers Mack Unavailable [phone] Allergies No Known Allergies Reason For Referral No Information Medications Medication SIG (Take, Route, Frequency, Duration) Notes Start Date End Date Status Caplyta 42 MG Capsule Oral; Duration: 30 Days Not-Taking Qelbree 200 MG Capsule Extended Release 24 Hour 2 capsule Oral Once a day; Duration: 30 days Active QUEtiapine Fumarate 200 MG Tablet Oral; Duration: 30 Days Not- Taking DULoxetine HCl 60 MG Capsule Delayed Release Particles Oral; Duration: 30 Days Not- Taking Lurasidone HCl 60 MG Tablet 1 tablet in the evening with food Oral Once a day; Duration: 30 days Active Lithobid 300 MG Tablet Extended Release 2 tab every night Oral Once a day; Duration: 30 days Active Immunizations Vaccine Route Administration Date Status Comme pawan Korin Covid-19 Vaccine Unknown 02/27/2021 Administere d Harisa Covid-19 Vaccine 1st dose Unknown 04/03/2022 Ad ministered Social History Tobacco Use: Social History Observation Description Date Details (start date - stop date) Current Smoker 03/19/2017 - NA Sex Assigned At : Social History Observation Description Sex Assigned At Male Social History Drug/Alcohol: Social Info Question Answer Notes AUDIT-C (Standard) Did you have a drink containing alcohol in the past year? Yes Points 6 Interpretation Negative How often did you have six or more drinks on one occasion in the past year? 2 to 4 times a month (2 points) How many drinks did you have on a typical day when you were drinking in the past year? 3 or 4 drinks (1 point) How often did you have a drink containing alcohol in the past year? 2 to 3 times a week (3 points) Tobacco Use: Social Info Question Answer Notes Tobacco Control (Standard) Tobacco use: Current smoker When did you start smoking? 03/19/2017 How often do you smoke cigarettes? Some days, but not every day How many cigarettes a day do you smoke? 5 or less Additional Details Category Social Info Options Details Migrated Social History Migrated Social History Alcohol Intake: Moderate 01/11/2024,Tobacco Years: Current some days smoker 2024 Problems Problem Type SNOMED Code ICD Code Onset Dates Problem Status W/U Status Risk Notes Problem Severe depressed bipolar I disorder without psychotic features (27367914) Bipolar disorder, current episode depressed, severe, without psychotic features (F31.4) Active confirmed Problem Generalized anxiety disorder (87083634) Generalized anxiety disorder (F41.1) Active confirmed Problem Attention deficit hyperactivity disorder, combined type (31071715) Attention-deficit hyperactivity disorder, combined type (F90.2) Active confirmed Plan Of Treatment No Information Insurance Providers Payer Name Payer Address Payer Phone Subscriber Number Group Number Insured Name Patient Relationship to Insured Coverage Start Date Coverage End Date [facility] [address] [place] [address] [id number] JESSICA TALAVERA Self - patient is the insured Medical (General) History Medical History History ICD Code Problems: Alcohol dependence Attention deficit hyperactivity disorder , combined type Body mass index 30+ - obesity Generalized anxiety disorder Obesity Severe depressed bipolar I disorder Suicidal thoughts Hospitalization History Reason Date(Month/Year) psychiatric [facility] dischak coleen on 03/17/202402/2024
--- OUTSIDE RECORDS SUMMARY | 2025-07-07 17:56 | XMS_ITS | Clinical Summary ---
Author Organization [facility] Address [address] [place] [address] Care Team Providers Care Pressure Dispatcher Name Role Phone Omi Arana MD Primary Care Provider Unav ailable Source Comments [facility],non-owned Affiliates and Associated Physician Practices is amultiple site organization consisting of ambulatory clinics and hospital sitesin [place], [place], [place] and [place]. This disclosure is being madepursuant to the Care Everywhere program and may not contain all information available regarding this patient. Last updated 18.[facility] Allergies No known active allergies Medications * This document contains information received from the source organization and may not represent a complete record from that organization. * Be aware that medications may not be up to date on this document. Alwaysverify current medications with the patient. citalopram (CELEXA) 20 MG tablet Take 1 Tab by mouth once daily. 30 Tab 0 04/29/2011 Active minocycline (MINOCIN) 100 MG capsuleIndicatio ns:Typhus Infection,Acne Take 1 Cap by mouth 2 times daily. Indications : Typhus Infection, Acne 04/29/2011 Active Immunizations Immunization Administration Dates Next Due DPT 03/16/2000, 6,1995,1995,04/09/19 95 HEP B VACCINE, PED/ADOL 1995,1995, HIB BOOSTER 1995,1995,1995 MMR 03/16/2000,07/02/1996 POLIO IPV 03/16/2000,1995,1995 ,1995 VARICELLA 01/28/1999 Family History Medical History Relation Name Comments Hypertension Maternal Grandmother Depression Mother Hypertension Mother Relation Name Status Comments Maternal Grandmother Mother Social History Tobacco Use Types Packs/Day Years Used Date Smoking Tobacco: Never Alcohol Use Standard Drinks/Week Comments Yes 0 (1 standard drink = 0.6 oz pur e alcohol) 3-4 times a year Sex and Gender Information Value Date Recorded Sex Assigned at Not on file Legal Sex Male 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 Gender Identity Not on file Sexual Orientation Not on file Last Filed Vital Signs Vital Sign Reading Time Taken Comments Blood Pressure 131/66 04/29/2011 6:17 AM CDT Pulse 67 04/29/2011 6:17 AM CDT Temperature 36.6 C (97.9 F) 04/29/2011 6:17 AM CDT Respiratory Rate 17 04/29/2011 6:17 AM CDT Oxygen Saturation 100% 04/29/2011 6:17 AM CDT Inhaled Oxygen Concentration - - Weight 95.7 kg (211 lb) 04/27/2011 2:33 AM CDT Height 185.4 cm (6' 1) 04/27/2011 2:33 AM CDT Body Mass Index 27.84 04/27/2011 2:33 AM CDT Plan of Treatment Health Maintenance Due Date Last Done Comments DTAP/TDAP/TD VACCINES (6 - Tdap) 2006 03/16/2000, 07/02/1996, 1995, Additional history exists HIV SCREENING 2010 HEPATITIS C SCREENING 02/08/2013 HPV VACCINE (1 - 3-dose SCDM series) 2022 DEPRESSION SCREENING 10/15/2024 COVID-19 VACCINE ( season) 2025 INFLUENZA VACCINE (#1) 2025 ZOSTER VACCINE (1 of 2) 2045 HEPATITIS B VACCINE Completed 1995, 1995, 1995 HIB VACCINE Aged Out 1995, 06/15, 1995 No longer eligible based on patient's age to complete this topic MENINGOCOCCAL (Group B) VACCINE SHARED DECISION-MAKING Aged Out No longer eligible based on patient's age to complete this topic MENINGOCOCCAL GROUPS A/C/Y/W VACCINE Aged Out No longer eligible based on patient's age to complete this topic PNEUMOCOCCAL VACCINE Aged Out No long er eligible based on patient's age to complete this topic Insurance Advance Directives * Full Code (Latest Code Status on File) Date Activated Date Inactivated Comments 04/27/2011 2:55 AM 04/30/2011 2:51 AM Care Teams Pressure Dispatcher Relationship Specialty Start Date End Date Omi Arana MD PCP - General Family Medicine 05/16/12
--- OUTSIDE RECORDS SUMMARY | 2025-07-07 17:57 | XMS_ITS | Clinical Summary ---
Author Organization [facility] Address [address] [place] [address] Care Team Providers Care Agency Sales Development Associate Name Role Phone Omi Arana MD Primary Care Provider Unav ailable Social History Tobacco Use Types Packs/Day Years Used Date Smoking Tobacco: Never Assessed Sex and Gender Information Value Date Recorded Sex Assigned at Not on file Legal Sex Male 5:44 PM CDT Gender Identity Not on file Sexual Orientation Not on file Plan of Treatment Health Maintenance Due Date Last Done Comments Annual Physical 1998 Hepatitis C 2013 DTaP, Tdap and Td Vaccines ( 1 - Tdap) 2014 Hepatitis B Vaccines (1 of 3 - 19+ 3-dose series) 2014 HPV Vaccines (1 - 3-dose SCD M series) 2022 COVID-19 Vaccine ( - 2023-2 5 season) 2025 Meningococcal B Vaccine Aged Out No l onger eligible based on patient's age to complete this topic Meningococcal Vaccine Aged Out No bee cora eligible based on patient's age to complete this topic Pneumococcal Vaccine: Pediat rics (0 to 5 Years) and At-Risk Patients (6 to 49 Years) Aged Out No longer eligible b ased on patient's age to complete this topic RSV Immunizations Under 20 Months Aged Out No longer eligible based on patient's age to complete this topic Care Teams Agency Sales Development Associate Relationship Specialty Start Date End Date Omi Arana MD PCP - General 04/26/11
[2025-07-07 18:01] LABS: Influenza A QL RT-PCR Negative (Negative); Influenza B QL RT-PCR Negative (Negative); SARS-CoV-2 RNA PCR Negative (Negative)
[2025-07-07 18:08] LABS: Thyroid Stimulating Hormone 0.812 uIU/mL (0.465-4.680)
[2025-07-07 18:08] LABS: Cannabinoid Screen Urine Positive (Negative)
[2025-07-07 18:18] LABS: Magnesium 2.1 mg/dL (1.6-2.3)
[2025-07-07] MEDS: POTASSIUM CHLORIDE 20 MEQ ER TABLET 40 MEQ PO (18:44)
[2025-07-07] MEDS: LACTATED RINGERS 1,000 ML 999 ML IV CONT (19:41)
[2025-07-07 20:05] LABS: Trichomonas Vag PCR NOT DETECTED (NOT DETECTE)
[2025-07-07 20:45] VITALS: BP 160/98; PULSE 119; RESP 19; O2SAT 100
[2025-07-07 21:45] VITALS: BP 164/97; PULSE 117; RESP 16; O2SAT 99
[2025-07-07] MEDS: LORazepam (*CRX) 0.5 MG TABLET PO (21:47)
[2025-07-07 23:00] VITALS: BP 151/95; PULSE 115; RESP 18; O2SAT 98
== END 2025-07-07 23:26 | disposition home or self-care (01) ==
PROVIDERS: Emergency Provider Physician Assistant
DX: T45.0X1A Poisoning by antiallergic and antiemetic drugs, accidental (unintentional), initial encounter (principal); R00.0 Tachycardia, unspecified; E87.6 Hypokalemia; D72.829 Elevated white blood cell count, unspecified; R82.90 Unspecified abnormal findings in urine; G47.00 Insomnia, unspecified; F90.9 Attention-deficit hyperactivity disorder, unspecified type; F12.90 Cannabis use, unspecified, uncomplicated; Z11.52 Encounter for screening for COVID-19
CPT/HCPCS: 36415; 80053; 80143; 80179; 80307; 81001; 82077; 82550; 82948; 83735; 84443; 85025; 87086; 87491; 87591; 87636; 87661; 93005; 96360; 99283; A9270; J7030; J7120

== ENCOUNTER 2025-08-30 14:54 | Emergency (ER) | payer SELFPAY ==
[2025-08-30] VITALS (17 sets, daily range): BP systolic 140–161; BP diastolic 89–112; PULSE 85–104; RESP 9–18; TEMP 36.6; O2SAT 97–99
--- NOTE | 2025-08-30 15:02 | ECG_ITS ---
Test Date: 2025-08-30 15:04:49 Measurements Intervals [place] Rate: 107 P: 49 CO: 188 QRS: 28 QRSD: 114 T: 31 QT: 378 QTc: 506 Interpretive Statements SINUS TACHYCARDIA RIGHT VENTRICULAR CONDUCTION DELAY NONSPECIFIC T-WAVE ABNORMALITY Electronically Signed On 08-31-2025 00:09:38 FRIED CAKE MAKER by Demetris Trivedi D.O
--- NOTE | 2025-08-30 15:10 | ED_ITS ---
HPI - Overdose General Chief Complaint: Overdose Stated Complaint: ingested 1500mg ASA Source: patient and EMS Mode of arrival: EMS Limitations: no limitations History of Present Illness HPI Narrative: This is a 30-year-old male presenting for possible overdose. Per EMS, the patient called because he took 1500 mg of aspirin today and about an hour after doing so began to feel lightheaded and dizzy. Patient states that over the past week, he has been taking 1500 mg once a day for headache that he has had. He reports no nausea, vomiting, chest pain, shortness of breath at this time. He took his last dose about an hour prior to arrival at 2:00 p.m.. Related Data Allergies Allergy/AdvReac Type Severity Reaction Status Date / Time No Known Allergies Allergy Verified 07/07/25 17:20 Review of Systems 2 Review of Systems: Gen.: Denies fevers or chills Eyes: Denies eye pain or visual change ENT: Denies congestion Respiratory: Denies shortness of breath or cough CV: Denies chest pain or palpitations GI: Denies abdominal pain nausea, emesis or diarrhea denies burning, urgency, frequency or hematuria Musculoskeletal: Denies back pain or muscle pain Neuro: Denies numbness, tingling, weakness or focal weakness Skin: Denies rash Except as documented, all other systems reviewed and negative [facility] Past Medical History Medical History Insomnia ADHD Social History Social History Substance use type: does not use Exam 2 Narrative: APPEARANCE: No acute distress, nontoxic, resting in bed EYES: EOMI HEENT: Normocephalic, atraumatic, OMM RESPIRATORY: No respiratory distress Clear to auscultation bilaterally with no rhonchi wheezing or rales. CARDIOVASCULAR: Regular rate and rhythm without murmurs rubs or gallops. ABDOMINAL: Soft, nontender, nondistended, no rebound or guarding MUSCULOSKELETAl: Moves all extremities. No clubbing, cyanosis or edema. NEURO: Awake and alert. Following commands, speech normal, no focal deficits SKIN:: Warm, dry. No rashes lesions or abrasions PSYCHIATRIC: Normal affect/mood, Course Vital Signs Vital signs: Vital Signs Temperature 97.9 F 08/30/25 14:56 Pulse Rate 104 H 08/30/25 14:56 Respiratory Rate 16 08/30/25 14:56 Blood Pressure 161/110 H 08/30/25 14:56 Pulse Oximetry 97 08/30/25 14:56 Oxygen Delivery Room Air 08/30/25 14:56 Temperature 97.9 F 08/30/25 14:56 Pulse Rate 93 08/30/25 18:54 Respiratory Rate 9 L 08/30/25 18:54 Blood Pressure 145/100 H 08/30/25 17:45 Pulse Oximetry 97 08/30/25 18:54 Oxygen Delivery Room Air 08/30/25 15:05 MDM - Overdose MDM Narrative Medical decision making narrative: 30-year-old male Presenting for possible accidental aspirin overdose. On initial evaluation patient was in no acute distress afebrile, hemodynamic stable. Differentials include but are not limited to: Overdose, electrolyte abnormality, headache, migraine Notable exam findings: Heart and lungs clear, no respiratory distress, abdomen soft nontender I personally reviewed the patient's lab result. Notable lab findings: Mild leukocytosis at 13.8, CMP without significant abnormalities. ABG interpreted by myself showed compensated respiratory acidosis. Initial salicylate level 8.1. I personally reviewed the patient's EKGs: 08/30/2025 at 3:04 p.m.: Sinus tachycardia rate of 107, normal axis, right ventricular conduction delay, nonspecific T-wave change, no ST changes Poison control was contacted, agreed with workup, recommended repeating the salicylate level at the 4 hour pollo and as long as it was down trending, he was cleared from a toxicologic standpoint. Repeat salicylate 5.3 which is down trending. Patient remained asymptomatic throughout his ED course. He was further educated on proper aspirin and NSAID dosages. He was given a referral to Dr. Mauricio, Family Medicine to establish care. Patient was deemed appropriate for discharge at this time. Patient was agreeable to this plan. Given strict return precautions. Medical Records Attestation: I reviewed the patient's medical records. Lab Data Attestation: I reviewed the patient's lab results. 08/30/25 15:15 08/30/25 15:15 Labs: Lab Results 08/30/25 08/30/25 08/30/25 Range/Units 15:15 15:19 15:32 WBC 13.8 H (4.5-10.0) K/mm3 RBC 4.93 (4.6-6.20) M/mm3 Hgb 15.1 (14.0-18.0) g/dL Hct 44.5 (42.0-52.0) % MCV 90.3 (80-100) fl MCH 30.6 (26-34) pg MCHC 33.9 (32-36) g/dl RDW 12.7 (11.5-14.5) % Plt Count 292 (150-375) k/mm3 MPV 8.4 (7.4-10.4) fl Immature Gran % (Auto) 0.4 (0-0.5) % Neut % (Auto) 83.9 H (45.5-73.1) % Lymph % (Auto) 10.4 L (18.3-44.2) % [place] % (Auto) 4.7 (2.6-8.5) % Eos % (Auto) 0.2 (0-4.4) % Baso % (Auto) 0.4 (0.2-1.2) % Lymph # (Auto) 1.43 (0.9-3.2) K/mm3 [place] # (Auto) 0.7 H (0.1-0.6) K/mm3 Eos # (Auto) 0.0 (0-0.3) K/mm3 Baso # (Auto) 0.1 (0.0-0.1) K/mm3 Abs Immat Gran (auto) 0.05 H (0.00-0.031) K/mm3 Absolute Neuts (auto) 11.6 H (1.3-6.7) K/mm3 Absolute Nucleated RBC 0.000 (0.0-0.012) K/mm3 Nucleated RBC % 0.0 (0.0-0.2) % PT 13.7 (11.1-14.7) Seconds INR 1.1 APTT 23.1 (22.3-36.8) Seconds Sodium 139 (137-145) mmol/L Potassium 3.5 (3.4-5.0) mmol/L Chloride 103 (98-107) mmol/L Carbon Dioxide 25 (22-30) mmol/L Anion Gap 11 (4-12) mmol/L BUN 12 (9-20) mg/dL Creatinine 0.87 (0.7-1.3) mg/dL Estim Creat Clear Calc 167 ml/min Estimated GFR > 60 (59 - ) Glucose 138 H (65-110) mg/dL POC Capillary Glucose 118 H (65-105) mg/dl Lactic Acid 1.8 (0.7-2.0) mmol/L Calcium 9.4 (8.4-10.2) mg/dL Total Bilirubin 0.7 (0.2-1.3) mg/dL AST 27 (17-59) U/L ALT 43 (6-50) U/L Alkaline Phosphatase 90 (38-126) U/L Total Protein 7.7 (6.3-8.2) g/dL Albumin 4.7 (3.5-5.1) g/dL Urine Color (Yellow) Urine Appearance (Clear) Urine pH (5.0-9.0) Ur Specific [place] (1.001-1.035) Urine Protein (Negative) mg/dL Urine Glucose (UA) (Negative) mg/dL Urine Ketones (Negative) mg/dL Ur Blood (Man) (Negative) Urine Nitrate (Negative) Urine Bilirubin (Negative) Urine Urobilinogen (<2.0) mg/dL Leukocyte Esterase Rfl (Negative) ALICIA/UL Urine RBC (0-2) /hpf Urine WBC (0-3) /hpf Ur Squamous Epith Cells (Few) /hpf Urine Bacteria /hpf Urine Casts Salicylates 8.1 (2-20) mg/dL Acetaminophen < 10 L (10-30) ug/mL Ethyl Alcohol < 10 (<10) mg/dL 08/30/25 08/30/25 Range/Units 15:57 18:10 WBC (4.5-10.0) K/mm3 RBC (4.6-6.20) M/mm3 Hgb (14.0-18.0) g/dL Hct (42.0-52.0) % MCV (80-100) fl MCH (26-34) pg MCHC (32-36) g/dl RDW (11.5-14.5) % Plt Count (150-375) k/mm3 MPV (7.4-10.4) fl Immature Gran % (Auto) (0-0.5) % Neut % (Auto) (45.5-73.1) % Lymph % (Auto) (18.3-44.2) % [place] % (Auto) (2.6-8.5) % Eos % (Auto) (0-4.4) % Baso % (Auto) (0.2-1.2) % Lymph # (Auto) (0.9-3.2) K/mm3 [place] # (Auto) (0.1-0.6) K/mm3 Eos # (Auto) (0-0.3) K/mm3 Baso # (Auto) (0.0-0.1) K/mm3 Abs Immat Gran (auto) (0.00-0.031) K/mm3 Absolute Neuts (auto) (1.3-6.7) K/mm3 Absolute Nucleated RBC (0.0-0.012) K/mm3 Nucleated RBC % (0.0-0.2) % PT (11.1-14.7) Seconds INR APTT (22.3-36.8) Seconds Sodium (137-145) mmol/L Potassium (3.4-5.0) mmol/L Chloride (98-107) mmol/L Carbon Dioxide (22-30) mmol/L Anion Gap (4-12) mmol/L BUN (9-20) mg/dL Creatinine (0.7-1.3) mg/dL Estim Creat Clear Calc ml/min Estimated GFR (59 - ) Glucose (65-110) mg/dL POC Capillary Glucose (65-105) mg/dl Lactic Acid (0.7-2.0) mmol/L Calcium (8.4-10.2) mg/dL Total Bilirubin (0.2-1.3) mg/dL AST (17-59) U/L ALT (6-50) U/L Alkaline Phosphatase (38-126) U/L Total Protein (6.3-8.2) g/dL Albumin (3.5-5.1) g/dL Urine Color Yellow (Yellow) Urine Appearance Clear (Clear) Urine pH 5.5 (5.0-9.0) Ur Specific [place] 1.020 (1.001-1.035) Urine Protein 1+ H (Negative) mg/dL Urine Glucose (UA) Negative (Negative) mg/dL Urine Ketones Trace H (Negative) mg/dL Ur Blood (Man) Negative (Negative) Urine Nitrate Negative (Negative) Urine Bilirubin Negative (Negative) Urine Urobilinogen 0.2 (<2.0) mg/dL Leukocyte Esterase Rfl Negative (Negative) ALICIA/UL Urine RBC 0-2 (0-2) /hpf Urine WBC 0-5 (0-3) /hpf Ur Squamous Epith Cells None seen (Few) /hpf Urine Bacteria None seen /hpf Urine Casts 3-5 Salicylates 5.3 (2-20) mg/dL Acetaminophen (10-30) ug/mL Ethyl Alcohol (<10) mg/dL ABG Data ABG results: 08/30/25 15:15 Puncture Site Right radial ABG pH 7.434 ABG pCO2 32.4 L ABG pO2 71.8 L ABG PO2/FiO2 Ratio 3.42 ABG HCO3 21.2 L ABG O2 Saturation 95.1 ABG O2 Content 20.2 ABG Base Excess -2.0 A-a Gradient 39.1 Oxyhemoglobin 93.7 Total Hemoglobin 15.3 O2 Delivery Device Not Reportable O2 Liters/Min Not Reportable FiO2 21 Discharge Plan Discharge Clinical Impression: Accidental drug ingestion Patient Disposition: Home Condition: Stable Instructions: Antibiotic Form, Aspirin (By mouth) Additional Instructions: Please do not take that much aspirin. You were given a referral to Dr. Mauricio, the family medicine Medicine, to establish care. For pain, discomfort or temperature greater than or equal to 100.8 ?F please alternate the following 2 medications as needed. First medication- acetaminophen/Tylenol- 1000mg every 6- 8 hours as needed for above indications. Second medication- ibuprofen/Motrin- 600mg every 6-8 hours as needed for above indication. Return to the ED for any new or worsening symptoms. Patient Language: Lao Follow-up/Referrals: Ketan Mauricio MD [Physician, Family Practice] UNKNOWN,DOCTOR [Non-Staff]
--- NOTE | 2025-08-30 15:20 | PC.NURSE ---
Addendum entered by Allie Eduardo RN 08/30/25 15:35: Per poison control, get initial labs. redraw aspirin level within 4-6 hours from time patient took aspirin. If levels are downtrending then no need to recheck aspirin levels. Poison control stated to notify them with any changes in patient condition. if patient having mental status changes, dextrose bolus needs to be given. if ph is less than 7.4 on abg, needs to be corrected with bicarb. things to watch for are tachycardia, dehydration, tinnitus, GI upset, increased INR< and increased temp. MD Ansari notified. poison control to send over overdose information for aspirin. Original Note: notified poison control about patient taking 4 tabs of 325mg of aspirin daily for last week. poison control to call back to check initial labs in a couple hours. wants to be notified if any mental status changes or any status changes in patient condition.
[2025-08-30 15:21] LABS: Hematocrit 44.5 % (42.0-52.0); Hemoglobin 15.1 g/dL (14.0-18.0); Immature Granulocyte Percent A 0.4 % (0-0.5); Lymphocytes Absolute Auto 1.43 K/mm3 (0.9-3.2); Mean Corpuscular HGB Conc 33.9 g/dl (32-36); Mean Corpuscular Hemoglobin 30.6 pg (26-34); Mean Corpuscular Volume 90.3 fl (80-100); Nucleated Red Blood Cells Absolute Auto 0.000 K/mm3 (0.0-0.012); Nucleated Red Blood Cells Perc 0.0 % (0.0-0.2); Platelet Count Result 292 k/mm3 (150-375); Red Blood Count 4.93 M/mm3 (4.6-6.20); White Blood Count 13.8 K/mm3 (4.5-10.0)
[2025-08-30] MEDS: SODIUM CHLORIDE 0.9% IV 1,000 ML 999 ML IV CONT (15:25)
[2025-08-30 15:26] LABS: Alveolar/Arterial O2 Gradient 39.1 mmHg; Fractional Inspired Oxygen 21 %; HCO3 ABG 21.2 mEq/l (22.0-26.0); Oxygen Content ABG 20.2 %vol (16.0-22.0); Oxygen Saturation ABG 95.1 % (95.0-100.0); PCO2 ABG 32.4 mmHg (35.0-45.0); PO2 ABG 71.8 mmHg (80.0-100.0); PO2 FiO2 Ratio Arterial Blood 3.42 %
[2025-08-30 15:30] LABS: Modified Allen's Test Pass; Site Drawn RIGHT RADIAL
[2025-08-30 15:35] LABS: INR 1.1; Prothrombin Time 13.7 Seconds (11.1-14.7)
[2025-08-30 15:36] LABS: Acetaminophen < 10 ug/mL (10-30); Partial Thromboplastin Time 23.1 Seconds (22.3-36.8); Salicylate 8.1 mg/dL (2-20)
[2025-08-30 15:37] LABS: Alanine Aminotransferase 43 U/L (6-50); Albumin Level 4.7 g/dL (3.5-5.1); Alkaline Phosphatase 90 U/L (38-126); Anion Gap 11 mmol/L (4-12); Aspartate Amino Transferase 27 U/L (17-59); Bilirubin,Total 0.7 mg/dL (0.2-1.3); Blood Urea Nitrogen 12 mg/dL (9-20); Calcium 9.4 mg/dL (8.4-10.2); Carbon Dioxide 25 mmol/L (22-30); Chloride 103 mmol/L (98-107); Estimated CRCL calculation 167 ml/min; Estimated Glomerular Filt Rate > 60; Glucose 138 mg/dL (65-110); Potassium 3.5 mmol/L (3.4-5.0); Sodium 139 mmol/L (137-145); Total Protein 7.7 g/dL (6.3-8.2)
[2025-08-30 16:12] LABS: Add Urine Microscopic? YES; Appearance Urine Clear (Clear); Glucose Urine UA Negative (Negative); Leukocyte Esterase Ur Negative LEU/UL (Negative); Nitrate Urine Negative (Negative); Specific Grav Ur 1.020 (1.001-1.035)
--- NOTE | 2025-08-30 17:29 | PC.NURSE ---
Spoke with Katie from [place] [facility], no new orders, continue to monitor pt and recheck ASA level at 1800.
[2025-08-30 18:27] LABS: Salicylate 5.3 mg/dL (2-20)
== END 2025-08-30 19:21 | disposition home or self-care (01) ==
PROVIDERS: Emergency Provider Student in an Organized Health Care Education/Training Program
DX: T39.011A Poisoning by aspirin, accidental (unintentional), initial encounter (principal)
CPT/HCPCS: 36415; 36600; 80053; 80143; 80179; 81001; 82077; 82805; 82948; 83605; 85018; 85025; 85610; 85730; 93005; 96360; 99284; J7030

== ENCOUNTER 2025-08-31 00:41 | Emergency (ER) | payer SELFPAY ==
--- OUTSIDE RECORDS SUMMARY | 2025-08-31 00:45 | XMS_ITS | Clinical Summary ---
Author Organization [facility] Address [address] [place] [address] Care Team Providers Care Information Security Systems Instructor Name Role Phone Louisa Schumacher NP Primary Care Provider [phone] Allergies No known active allergies Medications multivit fygzztya-orot-GI-c alcium (THERA-M) 9 mg iron-400 mcg tabletIndications: [...] 08/27/2024 Assessment & Plan (08/27/2024 6:16 AM ASSISTED LIVING CARE MANAGER): Chronic, episodic Unremarkable POCT urine test, sent [...] 07/28/2024 Assessment & Plan (08/27/2024 6:15 AM ASSISTED LIVING CARE MANAGER): Chronic, stability and degree of control unknown, [...] 02/12 Assessment & Plan (08/27/2024 6:13 AM ASSISTED LIVING CARE MANAGER): Chronic, worsened Encouraged to: Make healthy food [...] (07/25/2023 4:58 AM CDT): Encouraged follow-up with manager nursing as recommended Assessment & Plan (06/26/2022 7:37 [...] 03/24/2022 Assessment & Plan (08/27/2024 6:13 AM ASSISTED LIVING CARE MANAGER): Chronic, improved on medication Continued on lisinopril [...] 03/23/2022 Assessment & Plan (08/27/2024 6:15 AM ASSISTED LIVING CARE MANAGER): Chronic, stability and degree of control unknown, [...] stable, currently asymptomatic-advised scheduling a consultation with workers compensation claims analyst as previously discussed for further evaluation and [...] on file Legal Sex Male 2:42 AM ASSISTED LIVING CARE MANAGER Gender Identity Male 08/23/2022 3:09 PM ASSISTED LIVING CARE MANAGER Sexual Orientation James 08/23/2022 3: 09 PM ASSISTED LIVING CARE MANAGER Last Filed Vital Signs Vital Sign Reading Time Taken Comments Blood Pressure 128/72 08/26/2024 4:42 PM ASSISTED LIVING CARE MANAGER Pulse 105 08/26/2024 3:47 PM ASSISTED LIVING CARE MANAGER Temperature 36.8 C (98.3 F) 08/26/2024 3:47 PM ASSISTED LIVING CARE MANAGER Respiratory Rate 14 08/26/2024 3:47 PM ASSISTED LIVING CARE MANAGER Oxygen Saturation 96% 08/26/2024 3:47 PM ASSISTED LIVING CARE MANAGER Inhaled Oxygen Concentration - - Weight 164.9 kg (363 lb 8 oz) 08/26/2024 3:47 PM ASSISTED LIVING CARE MANAGER Height 186.7 cm (6' 1.5) 08/26/2024 3:47 PM ASSISTED LIVING CARE MANAGER Body Mass Index 47.3 08/26/2024 3:47 PM ASSISTED LIVING CARE MANAGER Plan of Treatment Health Maintenance Due Date [...] Comment: For additional information, please refer to http://Woop!Wear/faq/VOG279 (This link is being provided for informational/ educational purposes only.) HepBsAg NON-REACTI VE NON-REACT CATHY [facility] Comment: For additional information, please refer to http://Woop!Wear/faq/VDO648 (This link is being provided for informational/ educational purposes only.) Hep B core IgM NON-REACTI VE NON-REACT CATHY [facility] Comment: For additional information, please refer to http://Woop!Wear/faq/NZR681 (This link is being provided for informational/ educational purposes only.) Hep C Ab NON-REACTI VE NON-REACT CATHY [facility] Comment: HCV antibody was non-reactive. There is no laboratory evidence of HCV infection. In most cases, no further action is required. However, if recent HCV exposure is suspected, a test for HCV RNA (test code 17779) is suggested. For additional information please refer to http://Woop!Wear/faq/EIP34x5 (This link is being provided for informational/ educational purposes only.) Blood 08/11/2024 3:33 PM CDT 08/11/2024 3:39 PM CDT Louisa Schumacher NP LAB MICROBIOLOGY - GENERAL ORDER JAYSHREE Final Result [facility] [address] [place] [address] from Last 3 Months or Most Recently Relevant to Health Maintenance Insurance [employer] [place]OS BL CHOICE [place] [employer] OOS Advance Directives For more information, please contact: [phone] * Full Code (Latest Code Status on File) Date Activated Date Inactivated Comments 03/08/2022 5:27 PM 03/13/2022 8:26 PM Care Teams Information Security Systems Instructor Relationship Specialty Start Date End Date Louisa Schumacher NP [address] [place] [id number] PCP - General Family Practice 03/23/22
--- OUTSIDE RECORDS SUMMARY | 2025-08-31 00:45 | XMS_ITS | Clinical Summary ---
Author Organization [facility] Address [address] [place] [address] Care Team Providers Care Nut Dehydrator Operator Name Role Phone Omi Arana MD Primary [...] M series) 2022 COVID-19 Vaccine ( - 2024-2 6 season) 2025 Influenza Adult (#1) 2025 Hepatitis A Vaccines Aged Out No long er eligible based on patient's age to complete this topic Meningococcal B Vaccine Aged Out No l [...] age to complete this topic Care Teams Nut Dehydrator Operator Relationship Specialty Start Date End Date Omi Arana MD PCP - General 04/26/11
--- OUTSIDE RECORDS SUMMARY | 2025-08-31 00:45 | XMS_ITS | Patient Health Record ---
Author Organization [facility] Address [address] [place] [address] Care Team Providers Care Plant Protection Superintendent Name Role Phone Rogers Mack Unavailable [phone] Allergies No Known Allergies Reason For Referral [...] Immunizations Vaccine Route Administration Date Status Comme nts Moderna Covid-19 Vaccine 1st dose Unknown 04/03/2022 Ad ministered Korin Covid-19 Vaccine Unknown 02/27/2021 Administere d Social History Tobacco Use: Social History Observation [...] depressed bipolar I disorder without psychotic features (78809656) Bipolar disorder, current episode depressed, severe, without psychotic features (F31.4) Active confirmed Problem Generalized anxiety disorder (89347594) Generalized anxiety disorder (F41.1) Active confirmed Problem Attention deficit hyperactivity disorder, combined type (06687938) Attention-deficit hyperactivity disorder, combined type (F90.2) Active confirmed Plan Of Treatment No Information Insurance Providers Payer Name Payer Address Payer Phone Subscriber Number Group Number Insured Name Patient Relationship to Insured Coverage Start Date Coverage End Date [facility] [address] [place] [address] [id number] JESSICA TALAVERA Self - patient is the insured Medical (General) History Medical History History ICD Code Problems: Alcohol dependence Attention deficit hyperactivity disorder , combined type Body mass index 30+ - obesity Generalized anxiety disorder Obesity Severe depressed bipolar I disorder Suicidal thoughts Hospitalization History Reason Date(Month/Year) [facility] dischct coleen on 03/17/202402/2024
--- OUTSIDE RECORDS SUMMARY | 2025-08-31 00:45 | XMS_ITS | Patient Health Record ---
Author Organization [facility] Address [address] [place], [place] [id number] Support Name Relationship Address Phone JESSICA TALAVERA Guarantor Unknown [phone] Reason For Referral No Information Plan Of Treatment No Information
--- OUTSIDE RECORDS SUMMARY | 2025-08-31 00:45 | XMS_ITS | Clinical Summary ---
Author Organization [facility] Address [address] [address] Care Team Providers Care Waiter/Waitress Cafeteria Name Role Phone Omi Arana MD Primary Care Provider Unav ailable Source Comments [facility],non-owned Affiliates and Associated Physician Practices is amultiple site organization consisting of ambulatory clinics and hospital sitesin [place], [place], [place] and [place]. This disclosure is being madepursuant to the Care Everywhere program and may not contain all information available regarding this patient. Last updated 18.[facility] Allergies No known active allergies Medications * [...] on file Legal Sex Male 12:00 PM TUBE WRAPPER Gender Identity Not on file Sexual Orientation [...] 2022 DEPRESSION SCREENING 10/15/2024 COVID-19 VACCINE ( - 2024- season) 2025 INFLUENZA VACCINE (#1) 2025 ZOSTER [...] patient's age to complete [place] [address] Advance Directives * Full Code (Latest Code Status on File) Date Activated Date Inactivated Comments 04/27/2011 2:55 AM 04/30/2011 2:51 AM Care Teams Waiter/Waitress Cafeteria Relationship Specialty Start Date End Date Omi Arana MD PCP - General Family Medicine 05/16/12
--- OUTSIDE RECORDS SUMMARY | 2025-08-31 00:45 | XMS_ITS | Clinical Summary ---
Author Organization [facility] Address [address] [place] [address] Care Team Providers Care Director Of Social Media Marketing Name Role Phone Unavailable Primary Care Provider [...] Comments Blood Pressure 155/97 11/22/2021 12:40 PM AUTO CAMP ATTENDANT Pulse 92 11/22/2021 12:40 PM AUTO CAMP ATTENDANT Temperature 36.8 C (98.2 F) 11/22/2021 12:40 PM AUTO CAMP ATTENDANT Respiratory Rate 18 06/16/2020 3:17 PM CDT Oxygen Saturation 96% 11/22/2021 12: 40 PM AUTO CAMP ATTENDANT Inhaled Oxygen Concentration - - Weight 138.4 kg (305 lb 3.2 oz) 022 12:40 PM AUTO CAMP ATTENDANT Height 190.5 cm (6' 3) 09/21/2021 9:28 AM AUTO CAMP ATTENDANT Body Mass Index 38.15 09/21/2021 9:28 AM AUTO CAMP ATTENDANT Plan of Treatment Health Maintenance Due Date [...] history exists Alcohol and Drug Screen 10/15/2024 [id number] ( season) 2025 Imm-Influenza (#1) 2025 HIV Screening Completed 03/09/2022, 05/2022, 07/19/2021, Additional history exists Hepatitis C Screening Completed 03/09/2022 , 11/22/2021, 02/15/2021, Additional history exists Procedures Procedure Name Priority Date/Time Associated Diagnosis Comments HIV 1/2 AG & AB W/RFLX (4TH GEN) Routine 11/22/2021 1:11 PM AUTO CAMP ATTENDANT Exposure to human immunodeficiency virus HEPATITIS C AB W/RFLX HCV RNA, QT, RT PCR Routine 11/22/2021 1:11 PM AUTO CAMP ATTENDANT Exposure to human immunodeficiency virus LIPID PANEL Routine 02/15/2021 4:13 PM CDT Routine adult health maintenance from Last 3 Months or Most Recently Relevant to Health Maintenance Results * HEPATITIS C AB W/RFLX HCV RNA, QT, RT PCR (11/22/2021 1:11 PM AUTO CAMP ATTENDANT) HEPATITIS C ANTIBODY NON-REACT CATHY NON-REACT CATHY [facility] SIGNAL TO CUT-OFF 0.01 <1.00 [facility] [place] Comment: HCV antibody was non-reactive. There is no laboratory evidence of HCV infection. In most cases, no further action is required. However, if recent HCV exposure is suspected, a test for HCV RNA (test code 31504) is suggested. For additional information please refer to http://education.Matchmaker Videos/faq/UCP47f7 (This link is being provided for informational/ educational purposes only.) Blood Blood / Unknown 11/22/2021 1 :11 PM AUTO CAMP ATTENDANT 11/22/2021 1:11 PM AUTO CAMP ATTENDANT Narrative [facility] [place] - 11/23/2021 10:44 PM AUTO CAMP ATTENDANT FASTING:NO Rex Mac MD LAB - BLOOD DRAW Edited Re sult - Final [employer] [facility] [address] [address], [place] [address] [address] [place] [address] * HIV 1/2 AG & AB W/RFLX (4TH GEN) (11/22/2021 1:11 PM AUTO CAMP ATTENDANT) Pathologist [facility] HIV AG/AB, 4TH GEN NON-REACT CATHY NON-REACT CATHY [facility] [place] Comment: HIV-1 antigen and HIV-1/HIV-2 [...] purpose. For additional information please refer to http://education.Drop 'til you Shop.OpenNews/faq/FXY567 (This link is being provided for informational/ educational purposes only.) The performance of this assay has not been clinically validated in patients less than 2 years old. Blood Blood / Unknown 11/22/2021 1 :11 PM AUTO CAMP ATTENDANT 11/22/2021 1:11 PM AUTO CAMP ATTENDANT Narrative [facility] [place] - 11/23/2021 10:44 PM AUTO CAMP ATTENDANT FASTING:NO Rex Mac MD LAB - BLOOD DRAW Final Res ult [place] [facility] [address] [address], [place] [address] [place] [address] * LIPID PANEL (02/15/2021 4:13 PM CDT) [...] Jose Juan SS et al. ADAM. 2013;310(19): 1765-7991 (http://education.Apartment Adda/faq/CEJ654) CHOL/HDLC RATIO 2.7 <5.0 (calc) [facility] [...] LAB - BLOOD DRAW Final Res ult [place] [address] [place] [address], [place] [facility] [address] [place] [address] from Last 3 Months or Most Recently Relevant to Health Maintenance Insurance [facility]
[2025-08-31 00:48] VITALS: BP 179/107; PULSE 96; RESP 16; TEMP 36.6; O2SAT 100
[2025-08-31 02:18] VITALS: BP 166/98; PULSE 80; RESP 18; O2SAT 100
--- OUTSIDE RECORDS SUMMARY | 2025-08-31 03:03 | XMS_ITS | Clinical Summary ---
Author Organization [facility] Address [address] [place] [address] Care Team Providers Care Grade And Center Marker Name Role Phone Unavailable Primary Care Provider [...] Comments Blood Pressure 155/97 11/22/2021 12:40 PM HELICOPTER MECHANIC Pulse 92 11/22/2021 12:40 PM HELICOPTER MECHANIC Temperature 36.8 C (98.2 F) 11/22/2021 12:40 PM HELICOPTER MECHANIC Respiratory Rate 18 06/16/2020 3:17 PM CDT Oxygen Saturation 96% 11/22/2021 12: 40 PM HELICOPTER MECHANIC Inhaled Oxygen Concentration - - Weight 138.4 kg (305 lb 3.2 oz) 022 12:40 PM HELICOPTER MECHANIC Height 190.5 cm (6' 3) 09/21/2021 9:28 AM HELICOPTER MECHANIC Body Mass Index 38.15 09/21/2021 9:28 AM HELICOPTER MECHANIC Plan of Treatment Health Maintenance Due Date [...] history exists Alcohol and Drug Screen 10/15/2024 [id number] ( season) 2025 Imm-Influenza (#1) 2025 HIV Screening Completed 03/09/2022, 05/2022, 07/19/2021, Additional history exists Hepatitis C Screening Completed 03/09/2022 , 11/22/2021, 02/15/2021, Additional history exists Procedures Procedure Name Priority Date/Time Associated Diagnosis Comments HIV 1/2 AG & AB W/RFLX (4TH GEN) Routine 11/22/2021 1:11 PM HELICOPTER MECHANIC Exposure to human immunodeficiency virus HEPATITIS C AB W/RFLX HCV RNA, QT, RT PCR Routine 11/22/2021 1:11 PM HELICOPTER MECHANIC Exposure to human immunodeficiency virus LIPID PANEL Routine 02/15/2021 4:13 PM CDT Routine adult health maintenance from Last 3 Months or Most Recently Relevant to Health Maintenance Results * HEPATITIS C AB W/RFLX HCV RNA, QT, RT PCR (11/22/2021 1:11 PM HELICOPTER MECHANIC) HEPATITIS C ANTIBODY NON-REACT CATHY NON-REACT CATHY [facility] [place] SIGNAL TO CUT-OFF 0.01 <1.00 [facility] [place] Comment: HCV antibody was non-reactive. There is no laboratory evidence of HCV infection. In most cases, no further action is required. However, if recent HCV exposure is suspected, a test for HCV RNA (test code 52359) is suggested. For additional information please refer to http://education.Swoodoo/faq/TJZ07h0 (This link is being provided for informational/ educational purposes only.) Blood Blood / Unknown 11/22/2021 1 :11 PM HELICOPTER MECHANIC 11/22/2021 1:11 PM HELICOPTER MECHANIC Narrative [facility] [place] - 11/23/2021 10:44 PM HELICOPTER MECHANIC FASTING:NO Rex Mac MD LAB - BLOOD DRAW Edited Re sult - Final [facility] [address] [address], [place] [address] [place] [address] * HIV 1/2 AG & AB W/RFLX (4TH GEN) (11/22/2021 1:11 PM HELICOPTER MECHANIC) Pathologist [facility] HIV AG/AB, 4TH GEN NON-REACT CATHY NON-REACT CATHY [facility] [place] Comment: HIV-1 antigen and HIV-1/HIV-2 [...] purpose. For additional information please refer to http://education.Intact Medical.Splashup/faq/MLF905 (This link is being provided for informational/ educational purposes only.) The performance of this assay has not been clinically validated in patients less than 2 years old. Blood Blood / Unknown 11/22/2021 1 :11 PM HELICOPTER MECHANIC 11/22/2021 1:11 PM HELICOPTER MECHANIC Narrative [facility] - 11/23/2021 10:44 PM HELICOPTER MECHANIC FASTING:NO Rex Mac MD LAB - BLOOD DRAW Final Res ult [facility] [address] [address], [place] [address] [place] [address] * LIPID PANEL (02/15/2021 4:13 PM CDT) [...] Jose Juan SS et al. ADAM. 2013;310(19): 0095-6922 (http://education.Novede Entertainment/faq/EXW910) CHOL/HDLC RATIO 2.7 <5.0 (calc) [facility] [...] LAB - BLOOD DRAW Final Res ult [facility] [facility] [place] [address] [place] [address], [place] [facility] [address] [place] [address] from Last 3 Months or Most Recently Relevant to Health Maintenance Insurance [facility]
--- NOTE | 2025-08-31 05:22 | ED_ITS ---
HPI - General Adult General Chief complaint: Unspecified Stated complaint: lightheaded, faint Time Seen by Provider: 08/31/25 02:46 History of Present Illness HPI narrative: This is a 30-year-old male presenting with concerns about intestinal bleeding. Patient was seen earlier today for a minor aspirin overdose. He was cleared by the ED doctor and a toxicology consult. However since then he went home and said that he had a bloody bowel movement. He then said that he could see him self becoming more pale. He says he is dizzy. He says he believes that he is having internal bleeding from his aspirin overdose. Related Data Allergies Allergy/AdvReac Type Severity Reaction Status Date / Time No Known Allergies Allergy Verified 08/31/25 00:51 [facility] Past Medical History Medical History Insomnia ADHD Social History Social History Substance use type: does not use Exam 2 Narrative: APPEARANCE: No apparent distress. Anxious appearing Head: atraumatic. EYES: EOMI, NOSE: Atraumatic NECK: Trachea midline RESPIRATORY: No increased rate of breathing clear to auscultation CARDIOVASCULAR: RRR, ABDOMINAL: Non-distended soft nontender Rectal exam: No external hemorrhoids, green stool in the rectal vault, no hematochezia or melena MUSCULOSKELETAl: No obvious deformities NEURO: Alert. Moving 4/4 extremities SKIN:: Warm, dry. Normal color PSYCHIATRIC: Normal affect Course Vital Signs Vital signs: Vital Signs Temperature 97.9 F 08/31/25 00:48 Pulse Rate 96 08/31/25 00:48 Respiratory Rate 16 08/31/25 00:48 Blood Pressure 179/107 H 08/31/25 00:48 Pulse Oximetry 100 08/31/25 00:48 Oxygen Delivery Room Air 08/31/25 00:48 Temperature 97.9 F 08/31/25 00:48 Pulse Rate 80 08/31/25 02:18 Respiratory Rate 18 08/31/25 02:18 Blood Pressure 166/98 H 08/31/25 02:18 Pulse Oximetry 100 08/31/25 02:18 Oxygen Delivery Room Air 08/31/25 00:48 Medical Decision Making [facility] Narrative Medical decision making narrative: -Course: 30-year-old male presenting ED with concerns about gastrointestinal bleeding after a minor aspirin overdose earlier today. Vital signs are stable. Digital rectal exam revealed greenish brown stool in the rectal vault without hematochezia or melena. Hemoglobin is 14.6. patient reassured and discharged. -DDX includes but is not limited to: Anxiety, GI bleed Vital Signs Vital Signs: Vital Signs Temperature 97.9 F 08/31/25 00:48 Pulse Rate 96 08/31/25 00:48 Respiratory Rate 16 08/31/25 00:48 Blood Pressure 179/107 H 08/31/25 00:48 Pulse Oximetry 100 08/31/25 00:48 Oxygen Delivery Room Air 08/31/25 00:48 Temperature 97.9 F 08/31/25 00:48 Pulse Rate 80 08/31/25 02:18 Respiratory Rate 18 08/31/25 02:18 Blood Pressure 166/98 H 08/31/25 02:18 Pulse Oximetry 100 08/31/25 02:18 Oxygen Delivery Room Air 08/31/25 00:48 Discharge Plan Discharge Clinical Impression: Anxiety about health Patient Disposition: Home Condition: Stable Instructions: Antibiotic Form Additional Instructions: Please follow-up with your primary care physician for further management. If you develop any new or worsening symptoms return to ED for re-evaluation. Patient Language: Portuguese Follow-up/Referrals: PHYSICIAN,AUTOMATIC TRIMMING SEWER [Primary Care Provider, Internal Medicine]
[2025-08-31 05:34] LABS: Hematocrit 42.4 % (42.0-52.0); Hemoglobin 14.6 g/dL (14.0-18.0)
[2025-08-31 06:29] VITALS: BP 132/78; PULSE 72; RESP 20; O2SAT 98
== END 2025-08-31 06:30 | disposition home or self-care (01) ==
PROVIDERS: Emergency Provider Emergency Medicine
DX: F41.9 Anxiety disorder, unspecified (principal)
CPT/HCPCS: 36415; 85014; 85018; 99283